=== PATIENT | female | born 1945 | race Caucasian/White ===

== ENCOUNTER 2025-04-23 09:47 | Day surgery (SDC) | payer MEDICARE, BC ==
[~2025-04-23] VITALS: Ht 154.9 cm; Wt 60.7 kg
[~2025-04-23 09:47] MED LIST: Balanced Salt Epinephrine Irrigation Solution 500 mL IR SCH; LISI5 PO; METF500 PO; Moxifloxacin HCL 0.5 MG/0.1 ML 0.4MLSYR LEFTEYE SCH; Norco 5-325 Ta1 EACH PO; Ondansetron 4 MG SoluTab MM PRN; PHENYLEPHRINE\\TROPICAMIDE\\TETRACAINE OPHTHALMIC DILATING SOLN LEFTEYE PRN; Povidone-Iodine 450 DROP/30 ML Solution LEFTEYE SCH; Povidone-Iodine 450 DROP/30 ML Solution ONE; Tetracaine HCl/Pf 0.5% Opth Soln 4 ml ONE; Triamcinolone Inj Susp 40 MG / ML 1ML Vial INJ SCH; Triamcinolone Inj Susp 40 MG / ML 1ML Vial ONE
--- NOTE | 2025-04-23 10:25 | NUR ---
04/23/25 1025 Aleah Boo PT REPORTS ANXIETY LEVEL AT 7/10 PRIOR TO ADMINISTRATION OF VALIUM 10MG PO @ 1023.
[2025-04-23] MEDS ORDERED: MELO7.5 PO (10:28)
[2025-04-23] MEDS ORDERED: GABA100 PO (10:28)
[2025-04-23] MEDS ORDERED: BUSPIRONE HCL5 M6 PO (10:28)
[2025-04-23] MEDS ORDERED: CYMBALTA30 M2 PO (10:29)
--- NOTE | 2025-04-23 11:20 | NUR ---
04/23/25 1120 Aviva Curtis VITALS AT 1119 BP: 103/65 P: 75 O2: 99% WITH 6 LITERS OF BLOW BY OXYGEN
[2025-04-23 11:35] VITALS: BP 104/50
--- NOTE | 2025-04-23 11:46 | NUR ---
04/23/25 1146 MAAME HART REPORT GIVEN TO JOON LYMAN
== END 2025-04-23 11:55 | disposition home or self-care (01) ==
LOC: ORSCSDS 09:47
PROVIDERS: Ophthalmology
PROC: 08RK3JZ Replacement of Left Lens with Synthetic Substitute, Percutaneous Approach (ICD-10-PCS; principal; 2025-04-23 11:30)
DX: E11.36 Type 2 diabetes mellitus with diabetic cataract (principal); H25.813 Combined forms of age-related cataract, bilateral; I10 Essential (primary) hypertension; Z79.84 Long term (current) use of oral hypoglycemic drugs; Z79.899 Other long term (current) drug therapy
CPT/HCPCS: A9270; J3301; V2632

== ENCOUNTER 2025-04-30 06:50 | Day surgery (SDC) | payer MEDICARE, BC ==
[~2025-04-30] VITALS: Ht 154.9 cm; Wt 61.7 kg
[~2025-04-30 06:50] MED LIST changes: +BUSPIRONE HCL5 M6 PO; +CYMBALTA30 M2 PO; +GABA100 PO; +MELO7.5 PO; -Moxifloxacin HCL 0.5 MG/0.1 ML 0.4MLSYR LEFTEYE SCH; +Moxifloxacin HCL 0.5 MG/0.1 ML 0.4MLSYR RIGHTEYE SCH; -PHENYLEPHRINE\\TROPICAMIDE\\TETRACAINE OPHTHALMIC DILATING SOLN LEFTEYE PRN; +PHENYLEPHRINE\\TROPICAMIDE\\TETRACAINE OPHTHALMIC DILATING SOLN RIGHTEYE PRN; -Povidone-Iodine 450 DROP/30 ML Solution LEFTEYE SCH; +Povidone-Iodine 450 DROP/30 ML Solution RIGHTEYE SCH
--- NOTE | 2025-04-30 07:46 | NUR ---
04/30/25 0746 Ashanti Grey UPON ARRIVAL PT RATES ANXIETY 03/31. RN ADMINISTERED THE PO VALIUM PER DR'S ORDERS. PT CURRENTLY HAS PULSE OX ON AND SATS ARE 100% ON ROOM AIR. PT TOLERATED TETRACAINE EYE DROP AND PLEDGET PLACEMENT WELL. CALL LIGHT IN REACH. WARM BLANKETS PROVIDED.
--- NOTE | 2025-04-30 08:32 | NUR ---
04/30/25 0832 Sue Encinas 0894 BP 103/60, HR 75, O2 AT 97%, RESP 16
[2025-04-30 09:03] VITALS: BP 99/59
== END 2025-04-30 09:03 | disposition home or self-care (01) ==
LOC: ORSCSDS 06:50
PROVIDERS: Ophthalmology
PROC: 08RJ3JZ Replacement of Right Lens with Synthetic Substitute, Percutaneous Approach (ICD-10-PCS; principal; 2025-04-30 08:30)
DX: H25.811 Combined forms of age-related cataract, right eye (principal); Z96.1 Presence of intraocular lens; H11.153 Pinguecula, bilateral; I10 Essential (primary) hypertension; Z79.899 Other long term (current) drug therapy
CPT/HCPCS: A9270; J3301; V2632

== ENCOUNTER → 2025-07-14 | Outpatient (CLI) | payer MEDICARE ==
[~2025-07-14] MED LIST changes: -Balanced Salt Epinephrine Irrigation Solution 500 mL IR SCH; -Moxifloxacin HCL 0.5 MG/0.1 ML 0.4MLSYR RIGHTEYE SCH; -Ondansetron 4 MG SoluTab MM PRN; -PHENYLEPHRINE\\TROPICAMIDE\\TETRACAINE OPHTHALMIC DILATING SOLN RIGHTEYE PRN; -Povidone-Iodine 450 DROP/30 ML Solution ONE; -Povidone-Iodine 450 DROP/30 ML Solution RIGHTEYE SCH; -Tetracaine HCl/Pf 0.5% Opth Soln 4 ml ONE; -Triamcinolone Inj Susp 40 MG / ML 1ML Vial INJ SCH; -Triamcinolone Inj Susp 40 MG / ML 1ML Vial ONE
[2025-07-14 20:02] LABS: Campylobacter Sp Not Detected (NOT DETECT); E. Coli O157 Not Detected (NOT DETECT); Enteroaggregative E. coli-EAEC Not Detected (NOT DETECT); Enteropathogenic E. coli-EPEC Not Detected (NOT DETECT); Enterotoxigenic E. coli-ETEC Not Detected (NOT DETECT); Salmonella Sp Not Detected (NOT DETECT); Shiga Toxin-prod E. coli-STEC Not Detected (NOT DETECT); Shigella/Enteroin E. coli-EIEC Not Detected (NOT DETECT); Vibrio Sp Not Detected (NOT DETECT)
== END ==
LOC: LAB SHORT 09:00 → LAB 09:00
PROVIDERS: Family Medicine
DX: R19.7 Diarrhea, unspecified (principal)
CPT/HCPCS: 87507